=== PATIENT | female | born 1995 | race Caucasian/White ===

== ENCOUNTER 2020-06-16 16:58 | Emergency (ER) | payer OTHER ==
[2020-06-16] MEDS ORDERED: ONDANSETRON ODT 4 MG TABLET TL STA (17:30)
[2020-06-16 17:31] LABS: BILIRUBIN,URINE NEGATIVE (NEGATIVE); GLUCOSE, URINE (UA) NEGATIVE (NEGATIVE); KETONES,URINE (UA) NEGATIVE (NEGATIVE); LEUKOCYTE ESTERASE, URINE TRACE (NEGATIVE); NITRITE,URINE NEGATIVE (NEGATIVE); OCCULT BLOOD,URINE NEGATIVE (NEGATIVE); PH,URINE 6.5 PH (5.0-7.5); PROTEIN,URINE NEGATIVE (NEGATIVE); UROBILINOGEN,URINE 0.2 (NORMAL) E.U./dL (NORMAL)
--- NOTE | 2020-06-16 17:31 | ED Physician Documentation ---
History of Present Illness - Stated complaint Stated Complaint: SOA/NAUSEA - Chief complaint Chief Complaint: General - History obtained from History obtained from: Patient - Additonal information Additional information: Previously healthy 24-year-old woman, active duty in the [employer]. She had nausea this morning and started having vomiting this afternoon with a sensation of shortness of breath and chills without fevers. No sick contacts. No recent travel. There is a possibility of but she is on oral contraceptives. No abdominal pain. Review of Systems Constitutional: reports: Chills. denies: Fever, Fatigue GI: reports: Nausea, Vomiting. denies: Abdominal Pain, Diarrhea : denies: Dysuria PD PAST MEDICAL HISTORY - Present Medications Home Medications: Ambulatory Orders Medication Instructions Recorded Confirmed Ondansetron Odt [Zofran] 4 mg TL Q6H PRN #10 tablet 06/16/20 - Allergies Allergies/Adverse Reactions: Allergies Allergy/AdvReac Type Severity Reaction Status Date / Time No Known Drug Allergies Allergy Verified 06/16/20 17:13 PD ED PE NORMAL - Vitals Vital signs reviewed: Yes - General General: Alert and oriented X 3, No acute distress - Neck Neck: Supple, no meningeal sign, No bony TTP - Cardiac Cardiac: RRR, No murmur - Respiratory Respiratory: No respiratory distress, Clear bilaterally - Abdomen Abdomen: Non tender - Derm Derm: Normal color, Warm and dry - Extremities Extremities: No edema, No calf tenderness / cord - Neuro Neuro: Normal speech - Psych Psych: Normal mood, Normal affect Results - Vitals Vitals: Vital Signs - 24 hr 06/16/20 17:09 Temperature 37 C Heart Rate 95 Respiratory 20 Rate Blood Pressure 126/98 H O2 Saturation 100 Oxygen O2 Source Room air - Labs Labs: Laboratory Tests 06/16/20 06/16/20 06/16/20 17:18 17:37 17:37 WBC 6.9 RBC 4.62 Hgb 13.9 Hct 41.4 MCV 89.6 MCH 30.1 MCHC 33.6 RDW 12.0 Plt Count 377 MPV 9.5 Neut # (Auto) 3.4 Lymph # (Auto) 2.7 Alfalfa # (Auto) 0.6 Eos # (Auto) 0.2 Baso # (Auto) 0.0 Absolute Nucleated RBC 0.00 Nucleated RBC % 0.0 Sodium 140 Potassium 3.7 Chloride 108 Carbon Dioxide 24 Anion Gap 8.0 BUN 7 Creatinine 0.7 Estimated GFR (MDRD) 104 Glucose 103 H Calcium 9.3 Urine Color YELLOW Urine Clarity CLEAR Urine pH 6.5 Ur Specific [place] 1.020 Urine Protein NEGATIVE Urine Glucose (UA) NEGATIVE Urine Ketones NEGATIVE Urine Occult Blood NEGATIVE Urine Nitrite NEGATIVE Urine Bilirubin NEGATIVE Urine Urobilinogen 0.2 (NORMAL) Ur Leukocyte Esterase TRACE H Urine RBC 0-5 Urine WBC 4-5 Ur Squamous Epith Cells MANY Squamous H Urine Bacteria Many H Ur Microscopic Review INDICATED Urine Culture Comments NOT INDICATED Urine HCG, Qual NEGATIVE PD MEDICAL DECISION MAKING - ED course ED course: Healthy 24-year-old woman who presents with vomiting starting today. She is quite anxious about the potential for either or Covid. She is not . She felt better after Zofran. Remained nontender on reevaluation. Discussed that coronavirus testing is pending but does not have the typical lymphopenia that is generally seen with that. Departure - Departure Disposition: 01 Home, Self Care Clinical Impression: Vomiting Qualifiers: Vomiting type: unspecified Vomiting Intractability: non-intractable Nausea presence: with nausea Qualified Code(s): R11.2 - Nausea with vomiting, unspecified Condition: Good Record reviewed to determine appropriate education?: Yes Instructions: ED Diet Vomiting Diarrhea, ED Nausea Vomiting Prescriptions: Ondansetron Odt [Zofran] 4 mg TL Q6H PRN #10 tablet PRN Reason: Nausea / Vomiting Comments: Blood work is normal, test negative. Take the antivomiting medication as needed. Return if worsening. Return if not improved over the next 36 hours or so. You have a Covid test pending. You need to self quarantine until the result is done and negative. Do not leave your house. Do not get near anybody. The results should be done in 48 to 72 hours. We will call with a positive result, the fastest way to get a negative result for confirmation though is to go to the hospital website at [email or web address], click on the my [facility] tab a nd sign up for the patient portal. If any friends or family get sick and would like to have a Covid test done, but do not have signs or symptoms that would necessitate being hospitalized, we encourage testing through our coronavirus swabbing station, call [phone] to schedule an appointment. Forms: Activity restrictions
[2020-06-16 17:32] LABS: CLARITY,URINE CLEAR (CLEAR)
[2020-06-16 17:35] LABS: HCG UR QUAL NEGATIVE
[2020-06-16 17:38] LABS: BACTERIA,URINE Many /HPF (None Seen); RBC,URINE 0-5 /HPF (0-5); SQUAMOUS EPITHELIAL CELL,UR MANY Squamous (<= Few)
[2020-06-16 18:00] LABS: CALCIUM 9.3 mg/dL (8.5-10.3); CREATININE 0.7 mg/dL (0.4-1.0)
[2020-06-16 18:01] LABS: BASOPHILS % (AUTO) 0.6 %; EOSINOPHILS # (AUTO) 0.2 10^3/uL (0.0-0.7); EOSINOPHILS % (AUTO) 2.8 %; HGB - HEMOGLOBIN 13.9 g/dL (12.0-16.0); LYMPHOCYTES # (AUTO) 2.7 10^3/uL (1.5-3.5); MEAN CORPUSCULAR HEMOGLOBIN 30.1 pg (27.0-31.0); MEAN CORPUSCULAR HGB CONC 33.6 g/dL (32.0-36.0); MEAN CORPUSCULAR VOLUME 89.6 fL (81.0-99.0); MEAN PLATELET VOLUME 9.5 fL (7.9-10.8); MONOCYTES # (AUTO) 0.6 10^3/uL (0.0-1.0); MONOCYTES % (AUTO) 8.6 %; NEUTROPHILS # (AUTO) 3.4 10^3/uL (1.5-6.6); NEUTROPHILS % (AUTO) 48.7 %; PLT - PLATELET COUNT 377 10^3/uL (130-450); RED BLOOD COUNT 4.62 10^6/uL (4.20-5.40); WHITE BLOOD COUNT 6.9 x10^3/uL (4.8-10.8)
[2020-06-16 18:32] VITALS: BP 129/79
== END 2020-06-16 18:25 | disposition home or self-care (01) ==
LOC: ED 16:58
DX: R11.2 Nausea with vomiting, unspecified (principal); Z20.828 Contact with and (suspected) exposure to other viral communicable diseases
CPT/HCPCS: 36415; 80048; 81001; 81025; 85025; 87635; 99283; Q0162; 81003; 87086

== ENCOUNTER 2021-05-23 14:49 | Outpatient (CLI) | payer OTHER ==
[2021-05-23 16:06] VITALS: BP 101/72
--- NOTE | 2021-05-23 16:06 | SLEEP CARE CONSULTATION ---
Information from patient questionnaire entered by Kristy Nesbitt. I have reviewed and concur with the information entered by Kristy Nesbitt. This document represents the service I personally performed and the decisions made by me, Kacey Richey ARNP. History of Present Illness Service Date and Time: 05/23/2021 3179 Reason for Visit: New patient Chief Complaint: reports: Unrefreshed sleep, Snoring, Excessive daytime sleepiness, Observed pauses in breathing, Frequent awakenings at night Date of Onset: Some my whole life Usual bedtime: 9 PM Time it takes to fall asleep: Almost an hour Snores at night: Yes Observed to quit breathing while asleep: Yes Sleeps alone due to snoring: Yes Number of times waking at night: Couple of times Reasons for waking at night: reports: Choking, Snoring, Gasping for air, Bathroom, Other (unknown reason) Toss, Turn, or Twitch while sleeping: Yes Recalls having dreams: Yes Usually gets out of bed at: 7 AM Feels refreshed in the morning: No Morning headache: Yes (After an hour; 4 days a week, mostly weekends) Sleepy or fatigued during the day: Yes Ever fallen asleep while driving: No Takes day naps: Yes (1-2 hours on workdays, longer on weekends) Dreams during day naps: Yes Prior sleep studies: No Additional HPI information: I had the pleasure of seeing BARBARA MCGRAW today regarding the possibility of her having a sleep disorder. Her current complaints are excessive daytime sleepiness, frequent night awakenings, insomnia, observed pauses in breathing, snoring and unrefreshed sleep. She had a friend tell her that she stopped breathing when sleeping. She also snores loudly. She states about an hour to go to sleep, even with using Trazodone for sleep. She will usually wake up 2-3 hours after going to sleep and then repeatedly every 40 minutes or so the rest of the night. Her initial awakening will be about 1 hour before she is able to return to sleep. She keep water at her bedside because she will awaken feeling like she needs air and her throat is very dry. She wakes up with headaches about 4 days a week, mostly on the weekends. - Parasomnia Symptoms Ever been unable to move upon waking from sleep: No Walks in sleep: No Talks in sleep: Yes Ever acted out dreams in sleep: Yes (kick a lot) Ever felt weak in the knees when startled or emotional: No Bothered by creepy, crawly, restless sensations in legs: No Problems with memory or concentration: Yes (mostly concentration) Subjective Initial [place] Sleepiness Scale score: 15 (in 2020) Past Medical History Past Medical History: reports: Anxiety, Depression Social History The patient's occupation is active duty in the [employer]. Patient is single and lives in [place]. Have you smoked in the past 12 months: No Alcohol use: Yes Alcohol amount and frequency: Glass of wine a couple of times a week Caffeine use: Yes Caffeine amount and frequency: 1 cup coffee just on work days in the morning Family History Family history of sleep disordered breathing: Yes Family Hx Sleep Apnea: Mother: Snoring, Father: Snoring, Sleep apnea - Untreated, Sibling: Snoring, Grandparent: Snoring Allergies and Home Medications Drug allergies reviewed: Yes (NKDA) Home medication list reviewed: Yes Allergy and home medication list: Hydroxyzine Trazodone Wellbutrin Cryselle ( control) Review of Systems Weight gain over past 5 years: 20 Cardiovascular: reports: palpitations, irregular heart rate or pulse (last year it has been different; palpitations at night when laying down). denies: high blood pressure Gastrointestinal: denies: heartburn Neurological: reports: head trauma (concussion when 19 yrs old). denies: headaches Psychiatric: reports: anxiety, depression Ear/Nose/Throat: reports: dry mouth/throat, injury to nose (broken once), wisdom teeth removed. denies: tonsillectomy Endocrine: denies: thyroid disease Musculoskeletal: reports: back pain Immunologic: reports: sneezing (runny nose), allergies to food or environment (seasonal allergies) Physical Exam Blood Pressure: 101/72 Cuff size: wrist Heart Rate: 103 O2 Saturation: 98 Height: 5 ft 1 in Weight: 143 lb (with boots) Body Mass Index: 27.0 BMI Classification: Overweight Neck circumference: 12.26 (inches) Mouth and throat: narrow oropharynx Soft palate: long Hard palate: normal Uvula: normal Uvula visualization: 50% Mallampati Class II Tongue: enlarged in size with teeth herrera on lateral edges Tonsils: 1+ Neck: normal w/o lymphadenopathy or thyromegaly Heart: regular rate and rhythm Lungs: clear bilaterally Impression and Plan 1. Suspected Obstructive Sleep Apnea-Hypopnea Syndrome, as suggested by a history of loud and irregular snoring, observed cessation of breath while asleep, gasping or choking in sleep, morning headache, frequent awakening during the night, unrefreshed sleep, cognitive impairment, and excessive daytime sleepiness. Narrow oropharynx and obesity are common predisposing factors for obstructive sleep apnea-hypopnea syndrome. I recommend proceeding to polysomnography to confirm the diagnosis and to assess severity. If the patient has significant sleep disordered breathing, a manual CPAP titration study will also be performed to find the optimal treatment pressure. I informed the patient of what the sleep studies involve and after some discussion, obtained agreement to proceed. The pathophysiology of obstructive sleep apnea-hypopnea syndrome was discussed with the patient and health risks of cardiovascular and cerebrovascular disease if not treated. AAS brochure for obstructive sleep apnea-hypopnea syndrome given and reviewed. Risks of drowsy driving discussed in detail and patient advised to avoid long distance driving and to ticket puller at the first sign of drowsiness. Patient agreed to plan. * Schedule polysomnography +- manual CPAP titration study and return in 1-2 weeks after the study to discuss result and initiate therapy. * Avoid long distance driving or driving when feeling sleepy. * Avoid alcohol, sedative and muscle relaxant around bedtime. * Attempt to lose weight. * Review instructions provided by trained office staff on how to prepare for the sleep study. * Return for follow-up after sleep study completed. Counseling Topics: Weight loss health impact Visit Type: In Office Time Spent with Patient (minutes): 30 Provider Statement: I spent 100% of the Face to Face Visit with the patient with greater than 50% spent counseling the patient and coordination of care.
== END 2021-05-23 14:50 | disposition home or self-care (01) ==
LOC: SC 14:49
PROVIDERS: ATTEND Nurse Practitioner Family
DX: R06.83 Snoring (principal); R06.81 Apnea, not elsewhere classified; G47.10 Hypersomnia, unspecified; G47.8 Other sleep disorders
CPT/HCPCS: 99203; 99212

== ENCOUNTER 2021-09-13 19:30 | Outpatient (CLI) | payer OTHER | END 2021-09-13 19:31 | disposition home or self-care (01) | LOC: SC 19:30 | PROVIDERS: ATTEND Nurse Practitioner Family | DX: R06.83 Snoring (principal); R06.81 Apnea, not elsewhere classified; G47.8 Other sleep disorders; R51.9 Headache, unspecified; G47.10 Hypersomnia, unspecified; F32.A Depression, unspecified | CPT/HCPCS: 95810 ==

== ENCOUNTER 2021-10-04 12:32 | Outpatient (CLI) | payer OTHER ==
[2021-10-04 13:19] VITALS: BP 136/97
--- NOTE | 2021-10-04 13:19 | SLEEP CARE CONSULTATION ---
Information from patient questionnaire entered by Camille Talavera MA. I have reviewed and concur with the information entered by Camille Talavera MA. This document represents the service I personally performed and the decisions made by Rossi manriquez Caren J, ARNP. History of Present Illness Service Date and Time: 10/04/2021 1232 Initial [place] Sleepiness Scale score: 15 (in 2020) Current [place] Sleepiness Scale score: 14 (2021) Additional HPI information: BARBARA MCGRAW returns for follow up and results of the recently performed polysomnography. The patient was informed of the following findings: No significant sleep disordered breathing with an average AHI of 0.3 and josé miguel oxygen saturation of 95%. I explained the pathophysiology behind obstructive sleep apnea. Patient does not have sleep apnea and was advised how weight gain could increase the risk of developing sleep apnea in the future. I strongly encouraged the patient to lose weight. Patient has light to moderate snoring. Snoring can be reduced by weight loss. Weight loss is best achieved with diet consult. Patient instructed to contact PCP for referral. Snoring can also be treated with an oral appliance from a dentist. Advised to check insurance coverage. In addition, an ENT evaluation can be do to see if other treatment is indicated. Patient does not drink alcohol. Patient was cautioned about risks of drowsy driving until sleepiness symptoms resolve. Sleep Study - Results Type of Sleep Study: Polysomnography (F/U POLY) Prior sleep studies: No Polysomnography/Home Sleep Study results: IMPRESSION: The quality of the study is good. The patient had normal sleep efficiency. The sleep architecture was normal as well. Respiratory monitoring showed no significant sleep disordered breathing (AHI = 0.3) or hypoxia (josé miguel oxygen saturation of 95%). The patient slept adequately in supine position (supine AHI = 0.5; nonsupine = 0.18). Snore was light to moderate in intensity. There was no significant periodic leg movement of sleep. Cardiac rhythm was normal sinus rhythm without significant arrhythmia. No abnormal behavior (parasomnia) observed during the night. Allergies and Home Medications Known drug allergies: No Drug allergies reviewed: Yes Home medication list reviewed: Yes (no changes) Allergy and home medication list: Allergies No Known Drug Allergies Allergy (Verified 06/16/20 17:13) Review of Systems Review of systems same as previous: Yes (no changes) Physical Exam Vital signs obtained and entered by: FREDERIC MOELLER Blood Pressure: 136/97 (RIGHT, PULSE 95, RESP 18,) Heart Rate: 90 O2 Saturation: 99 (PAPER MASK) Height: 5 ft 1 in Weight: 135 lb Weight change since last visit: NORMAL WEIGHT Body Mass Index: 25.4 BMI Classification: Overweight Impression and Plan Snoring but no significant sleep disordered breathing. Patient advised that often weight loss will reduce snoring as well as apnea risk. An oral appliance can also be used for snoring. This would require a dental consultation. Patient cautioned not to use other online appliances as can cause bite issues. A list of accredited dentists in [facility] and one local dentist who makes oral appliances is available in office. Patient is advised to check if insurance will cover. An ENT consult can also be helpful to determine if any other treatment is an option. * Attempt to lose weight * Avoid alcohol consumption near bedtime * The patient is cautioned about driving until sleepiness is completely resolved. * Return as needed for follow up. Counseling Topics: Weight loss health impact Visit Type: In Office Time Spent with Patient (minutes): 10 Provider Statement: I spent 100% of the Face to Face Visit with the patient with greater than 50% spent counseling the patient and coordination of care.
== END 2021-10-04 12:33 | disposition home or self-care (01) ==
LOC: SC 12:32
PROVIDERS: ATTEND Nurse Practitioner Family
DX: R06.83 Snoring (principal); E66.3 Overweight; Z68.25 Body mass index [BMI] 25.0-25.9, adult
CPT/HCPCS: 99212